=== PATIENT | female | born 1945 | race Caucasian/White ===

== ENCOUNTER 2020-08-27 11:14 | Outpatient (CLI) | payer MEDICARE, OTHER, SELFPAY ==
[2020-08-27 11:46] LABS: Hemoglobin A1C 6.1 % (<5.7)
== END 2020-08-27 11:15 | disposition home or self-care (01) ==
PROVIDERS: PCP Family Medicine; Visit Provider Nurse Practitioner Family
DX: R73.09 Other abnormal glucose (principal)
CPT/HCPCS: 36415; 83036

== ENCOUNTER 2022-10-03 16:12 | Outpatient (CLI) | payer MEDICARE, OTHER, SELFPAY ==
--- NOTE | ~2022-10-03 | CT_ITS ---
EXAMINATION: CTA chest PE protocol DATE: 10/03/2022 17:45 INDICATION: R06.02 - Shortness of breath TECHNIQUE: Computed tomography angiography (CTA) of the chest was performed with 100 mL Omnipaque-350 intravenous contrast timed to evaluate the pulmonary arteries. Coronal maximum intensity projection 3D-reconstructions were created by the technologist. The dose-length product (DLP) was 684.81 mGy-cm. Automated exposure control and iterative reconstruction technique were employed. COMPARISON: 07/03/2018. FINDINGS: Lung parenchyma and airways: 10.5 cm lobulated right suprahilar mass that occludes a traversing right upper lobe segmental pulmonary artery and bronchus. Peripheral scar in the bilateral upper lobes. rways are otherwise patent.. Pleura: Unremarkable. Thoracic inlet, axillae and chest wall: 11 mm right thyroid lobe hypodensity, requiring no additional evaluation.. Thoracic aorta: Mild arch calcification. Mediastinum: Mediastinal lymphadenopathy. Small hiatal hernia. Heart and pericardium: Normal. Coronary artery calcifications: Moderate. Upper abdomen: No significant finding. Bones: No acute osseous finding. Pulmonary arteries: Study quality: Adequate. No pulmonary emboli detected. IMPRESSION: No CT evidence of acute pulmonary embolus. 10.5 cm right suprahilar mass with mediastinal lymphadenopathy that occludes a traversing subsegmenta l right upper lobe pulmonary artery and bronchus. These findings are suspicious for malignancy. Reviewed, dictated and finalized at location K. IMPRESSION: No CT evidence of acute pulmonary embolus. 10.5 cm right suprahilar mass with mediastinal lymphadenopathy that occludes a traversing subsegmental right upper lobe pulmonary artery and bronchus. These f indings are suspicious for malignancy.
[2022-10-03 17:34] LABS: Estimated Glomerular Filt Rate 40
== END 2022-10-03 16:13 | disposition home or self-care (01) ==
PROVIDERS: PCP Family Medicine; Visit Provider Physician Assistant Medical
DX: M54.9 Dorsalgia, unspecified (principal); R06.02 Shortness of breath; R74.8 Abnormal levels of other serum enzymes
CPT/HCPCS: 71275; Q9967

== ENCOUNTER 2022-10-18 12:11 | Emergency (ER) | payer MEDICARE, OTHER, SELFPAY ==
--- NOTE | ~2022-10-18 | XR_ITS ---
EXAMINATION: XR chest 2V DATE: 10/18/2022 12:38 INDICATION: Right chest pain. Shortness of breath. TECHNIQUE: Frontal and lateral views of the chest were obtained. COMPARISON: Chest CT 10/03/2022 FINDINGS: There is a large mass in right lung upper lobe. There is mild elevation of right hemidiaphr agm. There is mild atelectasis in the lungs. There is mild radiation fibrosis in left lung. There are changes of left mastectomy. IMPRESSION: 1. Large mass in right lung upper lobe, consistent with malignancy. CT-guided biopsy is recommended. Reviewed, dictated and finalized at location A. IMPRESSION: 1. Large mass in right lung upper lobe, consistent with malignancy. CT-guided b iopsy is recommended.
--- NOTE | 2022-10-18 12:13 | ECG_ITS ---
Measurements Intervals [place] Rate: 93 P: 35 NC: 182 QRS: 8 QRSD: 90 T: 11 QT: 361 QTc: 449 Interpretive Statements SINUS RHYTHM CAN NOT RULE OUT OLD INFERIOR OR COMPARED TO ECG 07/03/2018 07:45:59 Q WAVES INFERIORLY ARE MORE PROMINENT Electronically Signed On 10-18-2022 14:10:58 CDT by Michelle Meraz M.D.
[2022-10-18 12:26] VITALS: BP 148/80; PULSE 89; RESP 16; TEMP 36.4; O2SAT 100
[2022-10-18 12:37] LABS: Basophils Percent Auto 0.4 % (0.2-1.2); Eosinophils Absolute Auto 0.1 K/mm3 (0-0.3); Eosinophils Percent Auto 0.8 % (0-4.4); Hematocrit 36.9 % (37.0-47.0); Hemoglobin 11.8 g/dL (12.0-15.0); Immature Granulocyte Absolute 0.03 K/mm3 (0.00-0.031); Immature Granulocyte Percent A 0.4 % (0-0.5); Lymphocytes Absolute Auto 1.22 K/mm3 (0.9-3.2); Lymphocytes Percent Auto 16.6 % (18.3-44.2); Mean Corpuscular Hemoglobin 30.3 pg (26-34); Mean Corpuscular Volume 94.9 fl (80-100); Mean Platelet Volume 8.5 fl (7.4-10.4); Monocytes Absolute Auto 0.6 K/mm3 (0.1-0.6); Monocytes Percent Auto 7.6 % (2.6-8.5); Neutrophils Absolute Auto 5.4 K/mm3 (1.3-6.7); Neutrophils Percent Auto 74.2 % (45.5-73.1); Platelet Count Result 268 k/mm3 (150-375); Red Blood Count 3.89 M/mm3 (4.2-5.4); Red Cell Distribution Width 15.1 % (11.5-14.5); White Blood Count 7.3 K/mm3 (4.5-10.0)
[2022-10-18 12:47] LABS: Alanine Aminotransferase 25 U/L (6-35); Albumin Level 4.7 g/dL (3.5-5.1); Alkaline Phosphatase 226 U/L (38-126); Anion Gap 12 mmol/L (8-16); Aspartate Amino Transferase 27 U/L (14-36); Bilirubin,Total 0.7 mg/dL (0.2-1.3); Blood Urea Nitrogen 25 mg/dL (7-17); Calcium 9.7 mg/dL (8.4-10.2); Carbon Dioxide 26 mmol/L (22-30); Chloride 94 mmol/L (98-107); Estimated CRCL calculation 46 ml/min; Estimated Glomerular Filt Rate 48; Glucose 136 mg/dL (65-110); Potassium 4.2 mmol/L (3.4-5.0); Sodium 132 mmol/L (137-145)
[2022-10-18 14:39] VITALS: BP 139/68; PULSE 90; RESP 22; TEMP 36.6; O2SAT 100
--- NOTE | 2022-10-18 14:39 | ED.SOB ---
HPI - SOB/Dyspnea General Chief Complaint: Shortness of Breath/Dyspnea Stated Complaint: weak, SOB, back pain Time Seen by Provider: 10/18/22 14:26 History of Present Illness HPI Narrative: Patient is a 77-year-old female who presents ER with pain in her right back and shoulder as well as shortness of breath. Patient has history of breast cancer and had mastectomy 2 years ago. She was declared cancer free last year. Since then she has had some mild weakness and shortness of breath. Reports she has been much more short of breath over the last few months. She is also developed pain in her right shoulder and back. She finally followed up with her PCP and they performed a CTA 2 weeks ago to rule out PE. Patient was found to have a 10 cm mass in her lung as well as large lymphadenopathy. Patient is being worked up by her oncologist at [facility] and [place]. She is scheduled to have PFTs today but canceled due to shortness of breath. She is also scheduled to see a audio experience expert before she has a mass biopsied. She was prescribed tramadol but has not been taking it. Pain is worse with physical movements and deep breath. Exertional dyspnea is not increased compared to 2 weeks ago. Related Data Home Medications Medication Instructions Recorded Confirmed lactobacillus combination no.9 4 4,000 mmu cells PO DAILY 10/03/22 10/03/22 billion cell capsule (Adult 50 Plus Probiotic) magnesium 250 mg tablet 250 mg PO DAILY 10/03/22 10/03/22 methotrexate sodium 10 mg tablet 10 mg PO WEEKLY 10/03/22 10/03/22 Allergies Allergy/AdvReac Type Severity Reaction Status Date / Time No Known Allergies Allergy Verified 10/03/22 15:07 Review of Systems Review of Systems: All systems reviewed & are unremarkable except as noted in HPI and below Constitutional: Constitutional: Denies chills and Denies fever(s) ENT: Denies nasal congestion and Denies sore throat Cardiovascular: Cardiovascular: Denies chest pain, Denies rapid heart rate and Denies radiating jaw, neck or arm pain Respiratory: Respiratory: Denies cough and Reports dyspnea Gastrointestinal: Gastrointestinal: Denies abdominal pain, Denies nausea and Denies vomiting Musculoskeletal: Musculoskeletal: Reports back pain and Reports arthralgias [facility] Past Medical History Medical History Abnormal breast exam Abnormal ultrasound of breast BMI 38.0-38.9,adult BMI 39.0-39.9,adult BMI greater than 40 Left breast mass Lump of left breast Vitamin D deficiency, unspecified Surgical History Surgical History Hx of total mastectomy of left breast Family History Family History Father Acute myocardial infarction Larynx cancer Mother Cerebrovascular accident Other Diabetes mellitus Social History Social History Social History: Pt was dx with breast cancer in 2020. Feeling somewhat depressed because of the circumstances but says she isn't suicidal or anything like that, just trying to cope the best I can. Smoking packs per day: 1 Smoking cigarettes per day: 20.0 Years smoked: 20 Smoking pack-years: 20.00 Smoking status: Former smoker Tobacco type: cigarettes Second hand tobacco smoke exposure: No Alcohol intake: current Drinks per week: 1 Substance use: never Substance use type: does not use Lack of Transportation: No Lack of Food: Never True Current Housing: I Have Housing Concerned About Future Housing: No Difficulty Paying Gas/Electric Bills: No Difficulty Paying for Meds: No Currently Unemployed: No Education: High School Diploma/GED Difficulty w/ Childcare or Family Care: No Living arrangements: with family Occupation/Education: retired Additional occupation/education comment
[2022-10-18 15:22] VITALS: O2SAT 100
[2022-10-18] MEDS: MORPHINE SULFATE (*CRX) 4 MG/ML INJ IV PUSH (15:31)
[2022-10-18 16:44] VITALS: BP 129/65; PULSE 94; RESP 22; O2SAT 100
[2022-10-18 17:00] VITALS: BP 117/71; PULSE 96; RESP 20; O2SAT 98
== END 2022-10-18 17:02 | disposition home or self-care (01) ==
PROVIDERS: Emergency Provider Emergency Medicine; PCP Family Medicine
DX: R07.81 Pleurodynia (principal); R91.8 Other nonspecific abnormal finding of lung field; E55.9 Vitamin D deficiency, unspecified; Z85.3 Personal history of malignant neoplasm of breast; Z87.891 Personal history of nicotine dependence; Z90.12 Acquired absence of left breast and nipple; R94.31 Abnormal electrocardiogram [ECG] [EKG]
CPT/HCPCS: 36415; 71046; 80053; 85025; 93005; 96374; 99284; J2270

== ENCOUNTER 2022-11-14 09:27 | Inpatient (IN) | payer MEDICARE, OTHER, SELFPAY ==
[2022-11-14] VITALS (31 sets, daily range): BP systolic 104–136; BP diastolic 53–82; PULSE 72–120; RESP 17–29; TEMP 36.7–36.8; O2SAT 94–100; BMI 38.6
--- NOTE | ~2022-11-14 | US_ITS ---
EXAMINATION: US thoracentesis DATE: 11/14/2022 18:25 INDICATION: Right pleural effusion TECHNIQUE: The procedure and its risks and benefits were discussed with the patient. Potential risks discussed included bleeding, infection, and pneumothorax. The patient understood the risks and agreed to proceed. The skin was prepped and draped in sterile fashion. 1% lidocaine was used for local anes thesia. Under ultrasound guidance, a 5 Fr catheter with trochar was advanced into the right pleural e ffusion. Fluid was aspirated. The catheter was removed, and a dressing was applied. There were no imm ediate complications. FINDINGS: Ultrasound images demonstrate a right pleural effusion and the catheter within the fluid. IMPRESSION: 1. Successful ultrasound-guided thoracentesis yielding 800 mL of dark maroon-colored fluid. Reviewed, dictated and finalized at location A. IMPRESSION: 1. Successful ultrasound-guided thoracentesis yielding 800 mL of dark maroon-c olored fluid.
--- NOTE | ~2022-11-14 | CT_ITS ---
EXAMINATION: CTA chest PE abdomen pel DATE: 11/14/2022 12:31 INDICATION: Shortness of breath and abdominal pain, lung cancer, first treatment yesterday TECHNIQUE: Computed tomography angiography (CTA) of the chest was performed with 100 mL Omnipaque-350 intravenous contrast timed to evaluate the pulmonary arteries. Subsequent postcontrast images of the abdomen and pelvis are obtained. Coronal maximum intensity projection 3D-reconstructions were create d by the technologist. The dose-length product (DLP) was 2278.21 mGy-cm. Automated exposure control a nd iterative reconstruction technique were employed. COMPARISON: 10/03/2022 FINDINGS: CTA CHEST: The pulmonary arteries are well-opacified. No pulmonary embolism is identified. Sensitivit y is slightly limited by respiratory motion artifact. There is an approximately 12.4 x 9.6 cm necroti c mass of the right upper lobe infiltrating into the mediastinum which effaces many of the right uppe r lobe pulmonary arterial branches. The mass infiltrates into the right supraclavicular region, the r ight paratracheal region, the right hilum, and the subcarinal region. There is a moderate to large ri ght pleural effusion. There is a 1.9 x 1.4 cm soft tissue attenuation lesion posteriorly and inferior ly in the right pleural space. Much of the right lung is collapsed. There is mild atelectasis on the left. The heart size is normal. Calcified coronary artery atherosclerosis is noted. There is mass eff ect on the superior vena cava and right subclavian vessels resulting in multiple chest wall collatera ls as well as collaterals near the falciform ligament of the liver. There are bridging osteophytes at multiple levels in the spine, consistent with diffuse idiopathic skeletal hyperostosis (DISH). There are changes of left mastectomy. ABDOMEN/PELVIS CT: The liver, spleen, pancreas, gallbladder, and adrenal glands are normal. The left kidney is unremarkable. There is a subtle hypoattenuating area in the right kidney upper pole of uncl ear significance. No pathologically enlarged abdominal or pelvic lymph nodes are identified. There is calcified atherosclerosis of the aorta and many of the other arteries. No free intraperitoneal gas o r evidence of bowel obstruction. Colonic diverticulosis is present without evidence of diverticulitis . There is severe lumbar spondylosis. IMPRESSION: 1. No definite pulmonary embolus identified. 2. Infiltrating right upper lobe mass with mass effect on the superior vena cava, right subclavian ve ssels, and right upper lobe pulmonary arteries. 3. Moderate to large right pleural effusion. 4. Soft tissue lesion in the right pleural space concerning for pleural metastases. 5. Subtle area of low attenuation in the right kidney upper pole which could reflect metastatic disea se. Reviewed, dictated and finalized at location L. IMPRESSION: 1. No definite pulmonary embolus identified. 2. Infiltrating right upper lobe mass with mass effect on the superior vena cav a, right subclavian vessels, and right upper lobe pulmonary arteries. 3. Moderate to large right pleural effusion. 4. Soft tissue lesion in the right pleural space concerning for pleural metasta ses. 5. Subtle area of low attenuation in the right kidney upper pole which could re flect metastatic disease.
--- NOTE | ~2022-11-14 | XR_ITS ---
EXAMINATION: XR chest 2V DATE: 11/14/2022 10:17 INDICATION: Shortness of breath TECHNIQUE: AP and lateral views of the chest are obtained. COMPARISON: 10/18/2022 FINDINGS: A large right upper lobe mass is again noted. There is a right pleural effusion with increa se in size. There are airspace opacities of the right lung base. There is no pneumothorax. There are bridging osteophytes at multiple levels in the spine, consistent with diffuse idiopathic skeletal hyp erostosis (DISH). Changes of left mastectomy are noted. There is moderate thoracic spondylosis. IMPRESSION: 1. Large right upper lobe mass without significant change. 2. Enlarging right pleural effusion. 3. Right basilar airspace opacity which could reflect atelectasis or pneumonia. Reviewed, dictated and finalized at location L.
--- NOTE | ~2022-11-14 | US_ITS ---
EXAMINATION: US venous doppler [facility] DATE: 11/15/2022 12:00 INDICATION: Bilateral lower limb swelling. TECHNIQUE: Grayscale ultrasound images without and with compression and Doppler ultrasound images of the bilateral lower extremity veins were obtained. COMPARISON: None. FINDINGS: Noncompressible deep venous thrombosis in the partially compressible right common femoral, profunda f emoral and proximal femoral veins. The thrombus appears eccentric with linear echogenic margins sugge sting this may be chronic. The visualized portions of the more distal mid to distal right femoral vei n, the right popliteal vein, posterior tibial veins, peroneal veins, gastrocnemius vein and greater s aphenous vein outflow are patent. Noncompressible deep venous thrombosis in the left popliteal vein. The visualized portions of left co mmon femoral vein, profunda femoral vein, femoral vein, posterior tibial veins, peroneal veins, gastr ocnemius vein and greater saphenous vein outflow are patent. IMPRESSION: 1. . Venous thrombosis at the left popliteal vein and proximal and the right lower limb at the right common femoral, profunda femoral and proximal femoral veins. Portions of the thrombus at the proxima l right thigh and appearance suggesting potentially chronic thrombus. Findings were discussed with Brigida Bailey, the nurse caring for the patient, at 12:07 PM. Reviewed, dictated and finalized at location A. IMPRESSION: 1. . Venous thrombosis at the left popliteal vein and proximal and the right l ower limb at the right common femoral, profunda femoral and proximal femoral ve ins. Portions of the thrombus at the proximal right thigh and appearance sugges ting potentially chronic thrombus. Findings were discussed with Belgica Bailey, the nurse caring for the patient, at 12:07 PM.
--- NOTE | ~2022-11-14 | XR_ITS ---
EXAMINATION: XR chest 2V DATE: 11/15/2022 13:21 INDICATION: Shortness of breath TECHNIQUE: AP and lateral views of the chest are obtained. COMPARISON: 11/14/2022 FINDINGS: A large right upper lobe mass is again noted. There is a moderate-sized right pleural effus ion. No pneumothorax is identified. The left lung is clear. Changes of left mastectomy are noted. The re are bridging osteophytes at multiple levels in the spine, consistent with diffuse idiopathic skele venkat hyperostosis (DISH). IMPRESSION: 1. Stable large right upper lobe mass. 2. Moderate size right pleural effusion. Reviewed, dictated and finalized at location B.
--- NOTE | ~2022-11-14 | XR_ITS ---
CORRECTED REPORT exam description [facility] 11/15/22 This report was recreated on 11/15/22. Original report was EXAMINATION: XR chest 1V post thora DATE: 11/14/2022 17:48 INDICATION: Status post right thoracentesis TECHNIQUE: frontal view of the chest was obtained. COMPARISON: Chest CT dated 11/14/2022 FINDINGS: Opacification of the right upper lung zone which corresponds to a large right upper lobe mass on prior CT. There is aeration of the right midlung zone. Opacities in the right lower lung zone likely representing a combination of elevated right hemidiaphragm, residual small right pleural effusion and associated atelectasis. Left lung remains clear with no airspace opacities, pulmonary edema or pleural effusion. No pneumothorax. The left-sided the cardiomediastinal silhouette appears unremarkable. The right side is obscured. IMPRESSION: 1. Residual small right pleural effusion and basilar atelectasis post right thoracentesis. No pneumothorax. 2. Opacification of the right upper lung zone corresponding to a large right upper lobe mass on prior CT and concerning for malignancy. Reviewed, dictated and finalized at location A. [facility] IMPRESSION: 1. Residual small right pleural effusion and basilar atelectasis post right tho racentesis. No pneumothorax. 2. Opacification of the right upper lung zone corresponding to a large right up per lobe mass on prior CT and concerning for malignancy.
--- NOTE | 2022-11-14 09:37 | ECG_ITS ---
Measurements Intervals [place] Rate: 105 P: 15 NV: 136 QRS: 38 QRSD: 85 T: 13 QT: 339 QTc: 449 Interpretive Statements SINUS TACHYCARDIA INCOMPLETE RIGHT BUNDLE BRANCH BLOCK CONSIDER INFERIOR INFARCT, AGE INDETERMINATE BORDERLINE T WAVE ABNORMALITY- ANTERIOR LEADS BASELINE WANDER- V4 ABNORMAL ECG COMPARED TO ECG 10/18/2022 12:18:53 SINUS TACHYCARDIA NOW PRESENT Electronically Signed On 11-14-2022 10:03:32 CDT by Jadon Kelley D.O.
[2022-11-14 10:16] LABS: Basophils Percent Auto 0.2 % (0.2-1.2); Eosinophils Percent Auto 0.3 % (0-4.4); Hematocrit 33.4 % (37.0-47.0); Hemoglobin 10.4 g/dL (12.0-15.0); Immature Granulocyte Absolute 0.07 K/mm3 (0.00-0.031); Immature Granulocyte Percent A 0.7 % (0-0.5); Lymphocytes Absolute Auto 0.55 K/mm3 (0.9-3.2); Lymphocytes Percent Auto 5.3 % (18.3-44.2); Mean Corpuscular HGB Conc 31.1 g/dl (32-36); Mean Corpuscular Hemoglobin 29.4 pg (26-34); Mean Corpuscular Volume 94.4 fl (80-100); Mean Platelet Volume 8.1 fl (7.4-10.4); Monocytes Absolute Auto 0.6 K/mm3 (0.1-0.6); Neutrophils Absolute Auto 9.1 K/mm3 (1.3-6.7); Neutrophils Percent Auto 87.5 % (45.5-73.1); Platelet Count Result 335 k/mm3 (150-375); Red Blood Count 3.54 M/mm3 (4.2-5.4); White Blood Count 10.4 K/mm3 (4.5-10.0)
--- NOTE | 2022-11-14 11:19 | ED.SOB ---
HPI - SOB/Dyspnea General Chief Complaint: Shortness of Breath/Dyspnea Stated Complaint: SOB HX CANCER Time Seen by Provider: 11/14/22 09:29 History of Present Illness HPI Narrative: 77-year-old female presented the emergency department for evaluation of shortness of breath. Patient is undergoing cancer treatment for right-sided lung cancer. Patient does receive her treatment at [facility]. Patient is in the process of getting oxygen set up but states that this morning she was too short of breath and needed to present to the ED for evaluation. Patient is on narcotic pain medications and has also had some issues with constipation. Patient has been attempting to use stool softeners for this without results. Related Data Home Medications Medication Instructions Recorded Confirmed lactobacillus combination no.9 4 4,000 mmu cells PO DAILY 10/03/22 10/03/22 billion cell capsule (Adult 50 Plus Probiotic) magnesium 250 mg tablet 250 mg PO DAILY 10/03/22 10/03/22 methotrexate sodium 10 mg tablet 10 mg PO WEEKLY 10/03/22 10/03/22 Allergies Allergy/AdvReac Type Severity Reaction Status Date / Time No Known Allergies Allergy Verified 11/14/22 09:42 Review of Systems Review of Systems: All systems reviewed & are unremarkable except as noted in HPI and below PMFSH Past Medical History Medical History Abnormal breast exam Abnormal ultrasound of breast BMI 38.0-38.9,adult BMI 39.0-39.9,adult BMI greater than 40 Left breast mass Lump of left breast Vitamin D deficiency, unspecified Surgical History Surgical History Hx of total mastectomy of left breast Family History Family History Father Acute myocardial infarction Larynx cancer Mother Cerebrovascular accident Other Diabetes mellitus Social History Social History Social History: Pt was dx with breast cancer in 2020. Feeling somewhat depressed because of the circumstances but says she isn't suicidal or anything like that, just trying to cope the best I can. Smoking packs per day: 1 Smoking cigarettes per day: 20.0 Years smoked: 20 Smoking pack-years: 20.00 Smoking status: Former smoker Second hand tobacco smoke exposure: No Alcohol intake: current Drinks per week: 1 Substance use: never Substance use type: does not use Lack of Transportation: No Lack of Food: Never True Current Housing: I Have Housing Concerned About Future Housing: No Difficulty Paying Gas/Electric Bills: No Difficulty Paying for Meds: No Currently Unemployed: No Education: High School Diploma/GED Difficulty w/ Childcare or Family Care: No Living arrangements: with family Occupation/Education: retired Additional occupation/education comments: manager style Gender identity (if verbalized by the patient): Female Spiritual care concerns: No Exam Narrative: APPEARANCE: Exertional distress HEAD: normocephalic, atraumatic. EYES: PERRLA/EOMI, conjunctivae clear. NOSE: Normal no drainage NECK: Supple. No adenopathy, no masses. RESPIRATORY: Airway patent, respirations nonlabored. Decreased breath sounds on right CARDIOVASCULAR: Regular rate and rhythm without murmurs rubs or gallops. ABDOMINAL: Soft, nontender, nondistended, normal bowel sounds MUSCULOSKELETAL: Moves all extremities. Strength/ROM intact, No edema, No calf tenderness. NEURO: Alert. Cranial nerves II through XII intact. Grossly intact SKIN: Warm, dry. Normal Color PSYCHIATRIC: Normal affect/mood. Course Course Emergency Course: 77-year-old female presented ED for evaluation of shortness of breath and constipation. Ultrasound guided thoracentesis was ordered. Discussed case with [facility] and they are comfortable with the pl
[2022-11-14 11:31] LABS: Alanine Aminotransferase 30 U/L (6-35); Albumin Level 4.1 g/dL (3.5-5.1); Alkaline Phosphatase 272 U/L (38-126); Anion Gap 12 mmol/L (8-16); Aspartate Amino Transferase 40 U/L (14-36); Bilirubin,Total 0.8 mg/dL (0.2-1.3); Blood Urea Nitrogen 34 mg/dL (7-17); Calcium 9.3 mg/dL (8.4-10.2); Carbon Dioxide 27 mmol/L (22-30); Chloride 91 mmol/L (98-107); Estimated CRCL calculation 49 ml/min; Estimated Glomerular Filt Rate 54; Glucose 186 mg/dL (65-110); Potassium 4.5 mmol/L (3.4-5.0); Sodium 130 mmol/L (137-145)
[2022-11-14] MEDS: SODIUM CHLORIDE 0.9% IV 500 ML 999 ML IV CONT (11:36)
[2022-11-14] MEDS: MORPHINE SULFATE (*CRX) 4 MG/ML INJ IV PUSH (11:50)
--- NOTE | 2022-11-14 15:00 | PC.NURSE ---
Patient up to BSC post enema administration. When transferring short distance back to bed the patient's oxygen saturation decreased to 85% on RA with labored breathing and increasing SOB. Patient placed back on 2L NC with improvement in oxygen saturation to low 90s. MD made aware.
[2022-11-14 17:01] LABS: Partial Thromboplastin Time 26.7 SECONDS (22.3-36.8)
--- NOTE | 2022-11-14 17:12 | PC.NURSE ---
Pt to US via wheelchair on tele and O2 monitor at this time
[2022-11-14] MEDS: MORPHINE SULFATE (*CRX) 4 MG/ML INJ 2 MG IV PUSH ×2 (18:16→20:37)
--- NOTE | 2022-11-14 18:27 | ADMGEN ---
This patient, Stacey Figueroa, was admitted to [facility] Surg Room 314-01 at 1800. Patient/family oriented to hospital policies and general routines including ID bracelet, bed and alarms, visiting hours, pain management, procedures, bathroom and other care routines, personal items, smoking policy, room service/diet, and visiting hours. Information on how to activate the Rapid Response Team has been discussed. Patient/Family are encouraged to report perceived risks to care and to ask questions if they do not understand what they are told or what they should do.
--- NOTE | 2022-11-14 23:14 | PM.IMHP ---
H&P: HPI History of Present Illness Date/Time: 11/14/22 20:00 Chief Complaint: Shortness of breath. Narrative: This is a very pleasant 77-year-old female with history of triple negative breast cancer status post chemoradiation considered to be in remission May 2021 with a recent diagnosis of metastatic breast cancer to the right lung and lymph nodes who presented to the emergency department via EMS from home for evaluation of shortness of breath. The patient provides the following history. She has been short of breath with exertion dating back to the spring but seems to have gotten worse recently in fact she is in the process of getting oxygen set up at home however and has had to be delivered. This week she had her 1st radiation treatment and today she was increasingly short of breath from baseline and called 911. On EMS arrival her SpO2 was 92% on room air and she was placed on [address] of the chest, abdomen, and pelvis done on arrival showed no definite pulmonary embolus and noted in infiltrate right upper lobe mass with mass effect on the superior vena cava, right subclavian veins, and right upper lobe pulmonary arteries as well as a moderate to large right pleural effusion. A small right-sided pleural effusion was noted on PET scan last month with FDG uptake concerning for malignant effusion. She underwent thoracentesis per Interventional Radiology and she feels better in that regard. At the time my evaluation she is in a recliner chair and has her legs elevated. She has some swelling in her legs however that is not necessarily unusual for her nor is the swelling worse than usual. She has an occasional cough and reports having hemoptysis a couple of weeks ago though that has cleared up. She had an echocardiogram done last week prior to starting treatment and was told that everything looked okay. She has no history of venous thromboembolism. She denies fever, chills, and sweats. Her appetite has been poor and she has occasional nausea but no vomiting. She denies diarrhea and in fact she has been quite constipated. Stool was disimpacted in the emergency department and she feels a lot better in that regard. Review of Systems Review of Systems: Twelve systems were reviewed and are negative except for as per HPI. [facility], LAT[facility] Past Medical History Medical History (Updated 11/15/22 @ 14:08 by Gabbi Johnson PA-C) Essential hypertension Malignant neoplasm of breast metastatic to lung (09/2022) Mixed hyperlipidemia Pre-diabetes Rheumatoid arthritis Triple negative breast cancer (10/2020) Completed chemoradiation May 2021. Recurred September 2022 as above. Vitamin D deficiency, unspecified Surgical History Surgical History (Updated 11/15/22 @ 14:08 by Gabbi Johnson PA-C) History of appendectomy History of bilateral cataract extraction History of bilateral knee arthroplasty History of hysterectomy History of total mastectomy of left breast Family History Family History Father Acute myocardial infarction Larynx cancer Mother Cerebrovascular accident Other Diabetes mellitus Social History Social History (Updated 11/15/22 @ 14:09 by Gabbi Johnson PA-C) Social History: Surrogate medical decision maker: Javier Figueroa, spouse. Code status: Full code. Smoking packs per day: 1 Smoking cigarettes per day: 20.0 Years smoked: 20 Smoking pack-years: 20.00 Smoking status: Former smoker Second hand tobacco smoke exposure: No Alcohol intake: current Drinks per week: 1 Substance use: never Substance use type: does not use Lack of Transportation: No Lack of Food: Never True Current Housing: I Have Housing Concerned About Future Housing: No Difficulty Paying Gas/Electric Bills: No Difficulty Paying for Meds: No Currently Unemployed: No Education: High School Diploma/GED Difficulty w/ Childcare or Famil
[2022-11-15] VITALS (8 sets, daily range): BP systolic 88–106; BP diastolic 46–62; PULSE 84–116; RESP 20–24; TEMP 36.4–36.7; O2SAT 96–98; BMI 38.6
[2022-11-15] MEDS: MORPHINE SULFATE (*CRX) 4 MG/ML INJ 2 MG IV PUSH ×5 (00:17→20:47)
[2022-11-15] MEDS: MAGNESIUM OXIDE 200 MG TABLET PO ×2 (00:17→20:48)
[2022-11-15] MEDS: METOPROLOL SUCCINATE EXT REL 50 MG TABCR PO ×2 (00:17→20:48)
[2022-11-15] MEDS: ONDANSETRON INJ 4 MG/2 ML VIAL IV PUSH ×2 (00:23→06:53)
--- NOTE | 2022-11-15 06:49 | PC.NURSE ---
I have reviewed the documentation of Jane Khan RN and agree with recorded documentation.
[2022-11-15 07:12] LABS: Basophils Percent Auto 0.4 % (0.2-1.2); Eosinophils Absolute Auto 0.1 K/mm3 (0-0.3); Eosinophils Percent Auto 0.8 % (0-4.4); Hematocrit 30.4 % (37.0-47.0); Hemoglobin 9.4 g/dL (12.0-15.0); Immature Granulocyte Absolute 0.04 K/mm3 (0.00-0.031); Immature Granulocyte Percent A 0.4 % (0-0.5); Lymphocytes Absolute Auto 0.73 K/mm3 (0.9-3.2); Lymphocytes Percent Auto 7.5 % (18.3-44.2); Mean Corpuscular HGB Conc 30.9 g/dl (32-36); Mean Corpuscular Hemoglobin 29.1 pg (26-34); Mean Corpuscular Volume 94.1 fl (80-100); Mean Platelet Volume 8.3 fl (7.4-10.4); Monocytes Absolute Auto 0.8 K/mm3 (0.1-0.6); Monocytes Percent Auto 8.6 % (2.6-8.5); Neutrophils Absolute Auto 8.1 K/mm3 (1.3-6.7); Neutrophils Percent Auto 82.3 % (45.5-73.1); Platelet Count Result 341 k/mm3 (150-375); Red Blood Count 3.23 M/mm3 (4.2-5.4); Red Cell Distribution Width 15.1 % (11.5-14.5); White Blood Count 9.8 K/mm3 (4.5-10.0)
[2022-11-15 07:47] LABS: Anion Gap 9 mmol/L (8-16); Blood Urea Nitrogen 45 mg/dL (7-17); Calcium 9.1 mg/dL (8.4-10.2); Carbon Dioxide 28 mmol/L (22-30); Chloride 93 mmol/L (98-107); Estimated CRCL calculation 41 ml/min; Estimated Glomerular Filt Rate 44; Glucose 186 mg/dL (65-110); Magnesium 3.1 mg/dL (1.6-2.3); Potassium 4.5 mmol/L (3.4-5.0); Sodium 130 mmol/L (137-145)
--- NOTE | 2022-11-15 08:26 | PM.IMPN ---
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 No chest pain or shortness of breath. No nausea, vomiting or diarrhea. No fevers or chills. Complaining of right upper extremity pain. Review of Systems Review of Systems: 12 point review of systems was assessed and was negative except as noted in the HPI Exam Narrative: General: No acute distress, alert and oriented per baseline HEENT: Atraumatic, normocephalic, mucous membranes moist CV: Regular rate and rhythm, S1, S2 Lungs: Clear to auscultation bilaterally, no rales or crackles noted, no wheezes, good air entry Abdomen: Soft, nontender, nondistended Extremities: Normal to inspection Skin: No rashes noted, no lesions or wounds seen Psych: Euthymic, normal affect Objective Data Vital Signs Vital Signs: Vital Signs - 24 hr 11/14/22 09:31 11/14/22 09:43 11/14/22 09:45 Temperature 98.1 F Pulse Rate 110 H 110 H Respiratory Rate 26 H 17 Blood Pressure 114/53 L 117/62 Pulse Oximetry 100 100 Oxygen Delivery Nasal Cannula Nasal Cannula Oxygen Flow Rate 2 2 11/14/22 10:00 11/14/22 10:45 11/14/22 11:04 Temperature Pulse Rate 108 H 109 H 105 H Respiratory Rate 20 26 H 22 H Blood Pressure 121/58 L Pulse Oximetry 98 97 100 Oxygen Delivery Oxygen Flow Rate 11/14/22 11:17 11/14/22 11:20 11/14/22 11:30 Temperature Pulse Rate 117 H 114 H 112 H Respiratory Rate 19 20 Blood Pressure Pulse Oximetry Oxygen Delivery Oxygen Flow Rate 11/14/22 11:59 11/14/22 12:30 11/14/22 12:45 Temperature Pulse Rate 110 H 113 H 112 H Respiratory Rate 22 H 26 H 23 H Blood Pressure Pulse Oximetry 94 94 97 Oxygen Delivery Oxygen Flow Rate 11/14/22 13:02 11/14/22 13:30 11/14/22 13:48 Temperature Pulse Rate 112 H 111 H 120 H Respiratory Rate 22 H 22 H 29 H Blood Pressure Pulse Oximetry 97 98 96 Oxygen Delivery Oxygen Flow Rate 11/14/22 14:08 11/14/22 14:15 11/14/22 14:32 Temperature Pulse Rate 118 H 115 H 120 H Respiratory Rate 28 H 22 H 24 H Blood Pressure Pulse Oximetry Oxygen Delivery Oxygen Flow Rate 11/14/22 14:45 11/14/22 15:00 11/14/22 15:15 Temperature Pulse Rate 115 H 111 H 106 H Respiratory Rate 20 27 H 23 H Blood Pressure Pulse Oximetry 99 98 100 Oxygen Delivery Oxygen Flow Rate 11/14/22 15:30 11/14/22 15:59 11/14/22 16:03 Temperature Pulse Rate 107 H 110 H 110 H Respiratory Rate 25 H 27 H 21 H Blood Pressure Pulse Oximetry 99 100 99 Oxygen Delivery Oxygen Flow Rate 11/14/22 16:15 11/14/22 16:30 11/14/22 16:50 Temperature Pulse Rate 114 H 113 H 115 H Respiratory Rate 22 H 29 H 21 H Blood Pressure 109/63 Pulse Oximetry 100 100 Oxygen Delivery
[2022-11-15] MEDS: lisinopriL 20 MG TABLET BY MOUTH (09:30)
[2022-11-15] MEDS: BUMETANIDE 1 MG TABLET 4 MG BY MOUTH (09:30)
[2022-11-15] MEDS: PANTOPRAZOLE 40 MG TABLET PO ×2 (09:30→16:22)
[2022-11-15 11:20] LABS: Alanine Aminotransferase 30 U/L (6-35); Albumin Level 3.8 g/dL (3.5-5.1); Alkaline Phosphatase 237 U/L (38-126); Anion Gap 8 mmol/L (8-16); Aspartate Amino Transferase 38 U/L (14-36); Bilirubin,Total 0.6 mg/dL (0.2-1.3); Blood Urea Nitrogen 45 mg/dL (7-17); Calcium 9.1 mg/dL (8.4-10.2); Carbon Dioxide 28 mmol/L (22-30); Chloride 92 mmol/L (98-107); Estimated CRCL calculation 45 ml/min; Estimated Glomerular Filt Rate 48; Glucose 188 mg/dL (65-110); Potassium 4.5 mmol/L (3.4-5.0); Sodium 128 mmol/L (137-145)
--- NOTE | 2022-11-15 12:19 | PC.NURSE ---
Venous doppler results called to provider.
[2022-11-15] MEDS: oxyCODONE/ACETAMINOPHEN (*CRX) 5-325 MG TABLET 1 TABLET PO (16:22)
--- NOTE | 2022-11-15 18:18 | PC.NURSE ---
Provider called regarding medication for bilateral DVT'S. Message left.
[2022-11-15] MEDS: APIXABAN 5 MG TABLET 10 MG PO (20:50)
[2022-11-16 00:06] VITALS: PULSE 101; RESP 20; O2SAT 93
[2022-11-16] MEDS: oxyCODONE/ACETAMINOPHEN (*CRX) 5-325 MG TABLET 1 TABLET PO ×4 (05:00→17:17)
[2022-11-16 05:15] VITALS: BP 94/56
[2022-11-16 06:00] VITALS: BP 94/56; PULSE 91; RESP 22; TEMP 36.7; O2SAT 98
[2022-11-16 07:26] LABS: Basophils Percent Auto 0.3 % (0.2-1.2); Eosinophils Absolute Auto 0.1 K/mm3 (0-0.3); Eosinophils Percent Auto 1.2 % (0-4.4); Hematocrit 27.5 % (37.0-47.0); Hemoglobin 8.5 g/dL (12.0-15.0); Immature Granulocyte Absolute 0.04 K/mm3 (0.00-0.031); Immature Granulocyte Percent A 0.4 % (0-0.5); Lymphocytes Absolute Auto 0.82 K/mm3 (0.9-3.2); Mean Corpuscular HGB Conc 30.9 g/dl (32-36); Mean Corpuscular Hemoglobin 29.2 pg (26-34); Mean Corpuscular Volume 94.5 fl (80-100); Mean Platelet Volume 8.5 fl (7.4-10.4); Monocytes Absolute Auto 0.7 K/mm3 (0.1-0.6); Monocytes Percent Auto 7.9 % (2.6-8.5); Neutrophils Absolute Auto 7.4 K/mm3 (1.3-6.7); Neutrophils Percent Auto 81.2 % (45.5-73.1); Platelet Count Result 327 k/mm3 (150-375); Red Blood Count 2.91 M/mm3 (4.2-5.4); Red Cell Distribution Width 15.4 % (11.5-14.5); White Blood Count 9.1 K/mm3 (4.5-10.0)
[2022-11-16 07:39] LABS: Alanine Aminotransferase 31 U/L (6-35); Albumin Level 3.7 g/dL (3.5-5.1); Alkaline Phosphatase 209 U/L (38-126); Anion Gap 10 mmol/L (8-16); Aspartate Amino Transferase 44 U/L (14-36); Bilirubin,Total 0.6 mg/dL (0.2-1.3); Blood Urea Nitrogen 58 mg/dL (7-17); Calcium 8.6 mg/dL (8.4-10.2); Carbon Dioxide 25 mmol/L (22-30); Chloride 91 mmol/L (98-107); Estimated CRCL calculation 27 ml/min; Estimated Glomerular Filt Rate 26; Glucose 197 mg/dL (65-110); Potassium 4.4 mmol/L (3.4-5.0); Sodium 126 mmol/L (137-145)
[2022-11-16 08:00] VITALS: O2SAT 96
[2022-11-16] MEDS: BUMETANIDE 1 MG TABLET 4 MG BY MOUTH (08:34)
[2022-11-16] MEDS: lisinopriL 20 MG TABLET BY MOUTH (08:35)
[2022-11-16] MEDS: APIXABAN 5 MG TABLET 10 MG PO (08:35)
[2022-11-16] MEDS: PANTOPRAZOLE 40 MG TABLET PO ×2 (08:35→17:17)
[2022-11-16] MEDS: ONDANSETRON INJ 4 MG/2 ML VIAL IV PUSH (08:47)
[2022-11-16 11:20] VITALS: BP 90/48
[2022-11-16 12:45] VITALS: BP 108/52
--- NOTE | 2022-11-16 12:47 | PM.DS ---
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: Onset Date: 09/2022 Code(s): C50.919 - Malignant neoplasm of unspecified site of unspecified female breast; C78.00 - Secondary malignant neoplasm of unspecified lung Status: Acute Assessment and Plan: Management outpatient (5) Lower extremity edema: Code(s): R60.0 - Localized edema Status: Acute Assessment and Plan: Doppler showed acute DVT, started on Eliquis 11/15 Plan DVT prophylaxis with SCDs GI prophylaxis not indicated Code status full code DS: Summary Hospital Course Hospital Course: 77-year-old female with history of triple negative breast cancer status post chemoradiation considered to be in remission May 2021 with a recent diagnosis of metastatic breast cancer to the right lung and lymph nodes who presented to the emergency department via EMS from home for evaluation of shortness of breath. Recurrent malignant pleural effusion thought to be etiology of shortness of breath. Home O2 was arranged. Patient was discharged in stable condition with close outpatient follow-up. Please see above and med rec for details. Time Spent with Patient Time attestation: Total time spent providing and/or coordinating discharge services: Exam Narrative: General: No acute distress, alert and oriented per baseline HEENT: Atraumatic, normocephalic, mucous membranes moist CV: Regular rate and rhythm, S1, S2 Lungs: Clear to auscultation bilaterally, no rales or crackles noted, no wheezes, good air entry Abdomen: Soft, nontender, nondistended Extremities: Normal to inspection Skin: No rashes noted, no lesions or wounds seen Psych: Euthymic, normal affect DS: Data Data Completed and Pending Labs on day of discharge: Labs from last 24 hours 11/16/22 07:03 WBC 9.1 RBC 2.91 L Hgb 8.5 L Hct 27.5 L MCV 94.5 MCH 29.2 MCHC 30.9 L RDW 15.4 H Plt Count 327 MPV 8.5 Immature Gran % (Auto) 0.4 Neut % (Auto) 81.2 H Lymph % (Auto) 9.0 L Leslie % (Auto) 7.9 Eos % (Auto) 1.2 Baso % (Auto) 0.3 Lymph # (Auto) 0.82 L Leslie # (Auto) 0.7 H Eos # (Auto) 0.1 Baso # (Auto) 0.0 Abs Immat Gran (auto) 0.04 H Absolute Neuts (auto) 7.4 H Absolute Nucleated RBC 0.0 Nucleated RBC % 0.0 Sodium 126 L Potassium 4.4 Chloride 91 L Carbon Dioxide 25 Anion Gap 10 BUN 58 H D Creatinine 1.90 H Estim Creat Clear Calc 27 Estimated GFR 26 L Glucose 197 H Calcium 8.6 Total Bilirubin 0.6 AST 44 H ALT 31 Alkaline Phosphatase 209 H Total Protein 7.0 Albumin 3.7 Discharge Plan Discharge Attending physician on discharge: Jacklyn Feng Consulting providers: Sb Matos; Delgado Muniz; Gabbi Johnson; Jadon Kelley Discharging Clinician: Jacklyn Feng Patient Disposition: Hospice - Home Activity: as tolerated Diet: as tolerated Discharge Instructions: Residential home health arranged for Nursing and PT evaluations and treatment. As well as Palliative Care informational meeting. Residential home health can be reached at [phone]. RN, please fax discharge instructions to [phone] once complete. Thank you. Patient Instructions: Antibiotic Form, Apixaban (By mouth), Deep Vein Thrombosis (DC),
== END 2022-11-16 17:50 | disposition hospice, home (50) | DRG 181 ==
LOC: ANHED 10:01 → ANH3MEDSUR 17:37
PROVIDERS: Physician Assistant; Admitting Provider Internal Medicine; Emergency Provider Emergency Medicine; PCP Family Medicine; Visit Provider Student in an Organized Health Care Education/Training Program
DX: C78.01 Secondary malignant neoplasm of right lung (principal); C79.89 Secondary malignant neoplasm of other specified sites; J91.0 Malignant pleural effusion; E87.1 Hypo-osmolality and hyponatremia; I82.432 Acute embolism and thrombosis of left popliteal vein; I82.411 Acute embolism and thrombosis of right femoral vein; Z85.3 Personal history of malignant neoplasm of breast; E55.9 Vitamin D deficiency, unspecified; E78.2 Mixed hyperlipidemia; I10 Essential (primary) hypertension; K59.00 Constipation, unspecified; M06.9 Rheumatoid arthritis, unspecified; R09.02 Hypoxemia; Z90.12 Acquired absence of left breast and nipple; Z87.891 Personal history of nicotine dependence; Z92.21 Personal history of antineoplastic chemotherapy; Z92.3 Personal history of irradiation; Z90.49 Acquired absence of other specified parts of digestive tract; Z98.41 Cataract extraction status, right eye; Z98.42 Cataract extraction status, left eye; Z96.653 Presence of artificial knee joint, bilateral; Z90.710 Acquired absence of both cervix and uterus
CPT/HCPCS: 32555; 36415; 71045; 71046; 71275; 74177; 80048; 80053; 83735; 84443; 85025; 85610; 85730; 93005; 93970; 96361; 96374; 96375; 96376; 99285; A9270; G0378; J2270; J2405; J7040; Q9967